=== PATIENT | female | born 1955 | race American Indian/Alaskan Native ===

== ENCOUNTER 2019-03-12 06:54 | Emergency (ER) | payer MEDICARE, OTHER ==
[2019-03-12 07:17] VITALS: BP 129/85
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
--- NOTE | 2019-03-12 09:40 | XRay Report ---
Left fingers, 3 views INDICATION: left middle finger pain. COMPARISON: None. IMPRESSION: No acute osseous or soft tissue abnormality. No significant DJD. Signer Name: Lawrence Mcnulty Jr, MD Signed: 03/12/2019 9:36 AM Workstation Name: [id number]
== END 2019-03-12 10:08 | disposition home or self-care (01) ==
LOC: ED 06:54
DX: S02.2XXA Fracture of nasal bones, initial encounter for closed fracture (principal); M79.645 Pain in left finger(s); I10 Essential (primary) hypertension; X58.XXXA Exposure to other specified factors, initial encounter; Y93.89 Activity, other specified; Y92.89 Other specified places as the place of occurrence of the external cause; Y99.8 Other external cause status
CPT/HCPCS: 70160

== ENCOUNTER 2019-04-08 09:45 | Observation (INO) | payer MEDICARE ==
[2019-04-08 10:22] LABS: Basophils # (Auto) 0.1 K/mm3 (0.0-0.1); Basophils % (Auto) 0.7 % (0.0-1.8); Eosinophils # (Auto) 0.2 K/mm3 (0.0-0.4); Eosinophils % (Auto) 2.8 % (0.0-4.3); Hematocrit 41.9 % (30.3-42.9); Hemoglobin 14.1 gm/dl (10.1-14.3); Lymphocytes # (Auto) 2.2 K/mm3 (1.2-5.4); Lymphocytes % (Auto) 28.6 % (13.4-35.0); Mean Corpuscular HGB Conc 34 % (30-34); Mean Corpuscular Volume 85 fl (79-97); Monocytes # (Auto) 0.5 K/mm3 (0.0-0.8); Monocytes % (Auto) 6.1 % (0.0-7.3); Platelet Count 278 K/mm3 (140-440); Red Blood Count 4.93 M/mm3 (3.65-5.03); Red Cell Distribution Width 14.6 % (13.2-15.2)
--- NOTE | 2019-04-08 10:30 | XRay Report ---
CHEST 1 VIEW 04/08/2019 10:10 AM INDICATION / CLINICAL INFORMATION: Chest Pain. COMPARISON: None available. FINDINGS: SUPPORT DEVICES: None. HEART / MEDIASTINUM: Heart is upper normal size for AP portable technique. LUNGS / PLEURA: No significant pulmonary or pleural abnormality. No pneumothorax. ADDITIONAL FINDINGS: No significant additional findings. IMPRESSION: 1. No acute findings. Signer Name: Jarad Rajan MD Signed: 04/08/2019 10:26 AM Workstation Name: [id number]
[2019-04-08 10:44] LABS: BUN/Creatinine Ratio 21; Blood Urea Nitrogen 17 mg/dL (7-17); Calcium 9.1 mg/dL (8.4-10.2); Hemolysis Index 1
[2019-04-08] MEDS: NITROGLYCERIN 0.4 MG TAB SUBL SL PRN ×2 (14:11→14:20)
[2019-04-08] MEDS ORDERED: LIDOCAINE VISCOUS 2% 15 ML ORAL LIQD ONE (14:30)
[2019-04-08] MEDS ORDERED: ALUM-MAG HYDROXIDE-SIMETHICONE 200-200-20MG/5ML ORAL LIQD 30 ML ONE (14:30)
[2019-04-08] MEDS ORDERED: LIDOCAINE VISCOUS 2% 15 ML ORAL LIQD PO ONE (14:33)
--- NOTE | 2019-04-08 14:33 | Emergency Department Report ---
ED General Adult HPI - General Chief complaint: Chest Pain Stated complaint: CHEST PAIN Time Seen by Provider: 04/08/19 09:58 Source: patient, EMS Mode of arrival: Stretcher Limitations: No Limitations - History of Present Illness Initial comments: The patient presents to the emergency department with a chief complaint of substernal chest pain without radiation. Patient describes the chest pain as pressure that is continuously applied to her chest. Patient states the pain started approximately 9 AM this morning and has been continuous. Patient en dorses increased stresses in her life but denies a history of diabetes or hyperlipidemia. She denies abdominal pain, headache, shortness of breath. -: Sudden Location: chest Severity scale (0 -10): 5 Quality: other (pressure) Consistency: constant Improves with: none Worsens with: none Associated Symptoms: denies other symptoms Treatments Prior to Arrival: none - Related Data Allergies Allergy/AdvReac Type Severity Reaction Status Date / Time No Known Allergies Allergy Verified 04/08/19 14:30 ED Review of Systems ROS: Stated complaint: CHEST PAIN Other details as noted in HPI Comment: All other systems reviewed and negative Constitutional: denies: chills, fever Eyes: denies: eye pain, eye discharge, vision change ENT: denies: ear pain, throat pain Respiratory: denies: cough, shortness of breath, wheezing Cardiovascular: denies: chest pain, palpitations Endocrine: no symptoms reported Gastrointestinal: denies: abdominal pain, nausea, diarrhea Genitourinary: denies: urgency, dysuria, discharge Musculoskeletal: denies: back pain, joint swelling, arthralgia Skin: denies: rash, lesions Neurological: denies: headache, weakness, paresthesias Psychiatric: denies: anxiety, depression Hematological/Lymphatic: denies: easy bleeding, easy bruising ED Past Medical Hx - Past Medical History Hx Hypertension: Yes 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 Absent: respiratory distress - Cardiovascular Cardiovascular Exam: Present: regular rate, normal rhythm. Absent: systolic murmur, diastolic murmur, rubs, gallop - GI/Abdominal GI/Abdominal exam: Present: soft, normal bowel sounds. Absent: distended, tenderness - Extremities Exam Extremities exam: Present: normal inspection - Back Exam Back exam: Present: normal inspection - Neurological Exam Neurological exam: Present: alert, oriented X3, CN II-XII intact. Absent: motor sensory deficit - Psychiatric Psychiatric exam: Present: normal affect, normal mood - Skin Skin exam: Present: warm, dry, intact, normal color. Absent: rash ED Course Vital Signs 04/08/19 04/08/19 04/08/19 09:58 11:01 11:17 Temperature 97.4 F L Pulse Rate 76 59 L Respiratory 19 18 11 L Rate Blood Pressure 130/60 132/69 O2 Sat by Pulse 99 100 98 Oximetry 04/08/19 04/08/19 04/08/19 11:30 12:01 12:30 Temperature Pulse Rate 60 56 L 57 L Respiratory 13 12 14 Rate Blood Pressure 132/69 144/77 124/76 O2 Sat by Pulse 99 97 98 Oximetry 04/08/19 04/08/19 04/08/19 13:00 13:31 14:00 Temperature Pulse Rate 55 L 63 56 L Respiratory 11 L 12 12 Rate Blood Pressure 129/78 140/80 128/68 O2 Sat by Pulse 99 99 99 Oximetry 04/08/19 04/08/19 04/08/19 14:11 14:15 14:20 Temperature Pulse Rate 56 L 81 81 Respiratory 16 Rate Blood Pressure 128/68 128/68 128/68 O2 Sat by Pulse 97 Oximetry ED Medical Decision Making - Lab Data Result diagrams: 04/08/19 10:14 04/08/19 10:14 - EKG Data -: EKG Interpreted by Me EKG shows normal: sinus rhythm Rate: normal - Radiology Data Radiology results: report reviewed - Medical Decision Making Patient had relief of CP with nitro Critical care attestation.: If time is entered above; I have spent that time in minutes in the direct care of this critically ill patient, excluding procedure time. ED Disposition Clinical Impression: Chest pain Disposition: OP ADMIT IP TO THIS HOSP Is pt being admited?: Yes Does the pt Need Aspirin: Yes Condition: Fair Instructions: Chest Pain (ED) Referrals: PRIMARY CARE,MD [Primary Care Provider] - 3-5 Days
[2019-04-08] MEDS ORDERED: ALUM-MAG HYDROXIDE-SIMETHICONE 200-200-20MG/5ML ORAL LIQD 30 ML PO ONE (14:35)
[2019-04-08] MEDS: ASPIRIN 81 MG TAB CHEW PO ONE ×2 (15:06→15:09)
[2019-04-08] MEDS ORDERED: ASPIRIN 325 MG TAB ONE (15:07)
--- NOTE | 2019-04-08 21:38 | History and Physical Report ---
History of Present Illness Date of examination: 04/08/19 Date of admission: 04/08/19 14:41 Chief complaint: Chest pain since AM History of present illness: 63 y/o patient presents to the emergency department with a chief complaint of substernal chest pain without radiation. Patient describes the chest pain as pressure that is continuously applied to her chest. Patient states the pain started approximately 9 AM this morning and has been continuous. Patient endo rses increased stresses in her life but denies a history of diabetes or hyperlipidemia. She denies abdominal pain, headache, shortness of breath.Pain is 5 on scale of 10.No palpitations or sob or diaphoresis. Past Medical History Hx Hypertension: Yes CVA: Yes (at age 23 no deficits) Surgical History Additional Surgical History: tubal ligation, foot repair Social History Smoking Status: Never Smoker Substance Use Type: Marijuana Blake N a complication Family History Htn Review of Systems ROS: Stated complaint: CHEST PAIN Other details as noted in HPI Comment: All other systems reviewed and negative Constitutional: denies: chills, fever Eyes: denies: eye pain, eye discharge, vision change ENT: denies: ear pain, throat pain Respiratory: denies: cough, shortness of breath, wheezing Cardiovascular: denies: chest pain, palpitations Endocrine: no symptoms reported Gastrointestinal: denies: abdominal pain, nausea, diarrhea Genitourinary: denies: urgency, dysuria, discharge Musculoskeletal: denies: back pain, joint swelling, arthralgia Skin: denies: rash, lesions Neurological: denies: headache, weakness, paresthesias Psychiatric: denies: anxiety, depression Hematological/Lymphatic: denies: easy bleeding, easy bruis Medications and Allergies Allergies Allergy/AdvReac Type Severity Reaction Status Date / Time No Known Allergies Allergy Verified 04/08/19 14:30 Home Medications Medication Instructions Recorded Confirmed Last Taken Type ARIPiprazole [Abilify TAB] 5 mg PO DAILY 04/08/19 04/08/19 11/11/18 History Aspirin [Aspirin BABY CHEW TAB] 81 mg PO QDAY 04/08/19 04/08/19 12/24/18 History Celecoxib [celeBREX] 200 mg PO QDAY 04/08/19 04/08/19 11/11/18 History Escitalopram Oxalate [Lexapro] 20 mg PO QHS 04/08/19 04/08/19 11/11/18 History amLODIPine [Norvasc] 5 mg PO DAILY 04/08/19 04/08/19 12/24/18 History Active Meds: Active Medications Nitroglycerin (Nitrostat) 0.4 mg SL .Q5MIN PRN PRN Reason: Chest Pain Last Admin: 04/08/19 14:20 Dose: 0.4 mg Documented by: Exam - Constitutional Vitals: Temp Pulse Resp BP Pulse Ox 98.4 F 61 16 127/74 98 04/08/19 16:22 04/08/19 16:22 04/08/19 16:22 04/08/19 16:22 04/08/19 16:22 General appearance: Present: no acute distress, well-nourished - EENT Eyes: Present: PERRL ENT: hearing intact, clear oral mucosa - Neck Neck: Present: supple, normal ROM - Respiratory Respiratory effort: normal Respiratory: bilateral: CTA - Cardiovascular Heart rate: 78 Rhythm: regular Heart Sounds: Present: S1 & S2. Absent: rub, click - Extremities Extremities: no ischemia, pulses intact, pulses symmetrical, No edema Peripheral Pulses: within normal limits - Abdominal General gastrointestinal: Present: soft, non-tender, non-distended, normal bowel sounds Female genitourinary: Present: normal - Rectal Rectal Exam: deferred - Integumentary Integumentary: Present: clear, warm, dry - Musculoskeletal Musculoskeletal: gait normal, strength equal bilaterally - Psychiatric Psychiatric: appropriate mood/affect, intact judgment & insight - Neurologic Neurologic: CNII-XII intact, moves all extremities - Allied Health Allied health notes reviewed: nursing, case management Results - Labs CBC & Chem 7: 04/08/19 10:14 04/08/19 10:14 Labs: Laboratory Last Values WBC 7.7 K/mm3 (4.5-11.0) 04/08/19 10:14 RBC 4.93 M/mm3 (3.65-5.03) 04/08/19 10:14 Hgb 14.1 gm/dl (10.1-14.3) 04/08/19 10:14 Hct 41.9 % (30.3-42.9) 04/08/19 10:14 MCV 85 fl (79-97) 04/08/19 10:14 MCH 29 pg (28-32) 04/08/19 10:14 MCHC 34 % (30-34) 04/08/19 10:14 RDW 14.6 % (13.2-15.2) 04/08/19 10:14 Plt Count 278 K/mm3 (140-440) 04/08/19 10:14 Lymph % (Auto) 28.6 % (13.4-35.0) 04/08/19 10:14 [place] % (Auto) 6.1 % (0.0-7.3) 04/08/19 10:14 Eos % (Auto) 2.8 % (0.0-4.3) 04/08/19 10:14 Baso % (Auto) 0.7 % (0.0-1.8) 04/08/19 10:14 Lymph # 2.2 K/mm3 (1.2-5.4) 04/08/19 10:14 [place] # 0.5 K/mm3 (0.0-0.8) 04/08/19 10:14 Eos # 0.2 K/mm3 (0.0-0.4) 04/08/19 10:14 Baso # 0.1 K/mm3 (0.0-0.1) 04/08/19 10:14 Seg Neutrophils % 61.8 % (40.0-70.0) 04/08/19 10:14 Seg Neutrophils # 4.7 K/mm3 (1.8-7.7) 04/08/19 10:14 Sodium 141 mmol/L (137-145) 04/08/19 10:14 Potassium 4.0 mmol/L (3.6-5.0) 04/08/19 10:14 Chloride 103.6 mmol/L (98-107) 04/08/19 10:14 Carbon Dioxide 24 mmol/L (22-30) 04/08/19 10:14 Anion Gap 17 mmol/L 04/08/19 10:14 BUN 17 mg/dL (7-17) 04/08/19 10:14 Creatinine 0.8 mg/dL (0.7-1.2) 04/08/19 10:14 Estimated GFR > 60 ml/min 04/08/19 10:14 BUN/Creatinine Ratio 21 % 04/08/19 10:14 Glucose 104 mg/dL (65-100) H 04/08/19 10:14 Calcium 9.1 mg/dL (8.4-10.2) 04/08/19 10:14 Troponin T < 0.010 ng/mL (0.00-0.029) 04/08/19 16:15 NT-Pro-B Natriuret Pep 8.68 pg/mL (0-900) 04/08/19 10:14 - Imaging and Cardiology EKG: report reviewed (NSR 63/min) Chest x-ray: report reviewed (NAF) Assessment and Plan Advance Directives: Yes (Full code) VTE prophylaxis?: Chemical - Patient Problems (1) Chest pain Current Visit: Yes Status: Acute Qualifiers: Chest pain type: unspecified Qualified Code(s): R07.9 - Chest pain, unspecified Plan to address problem: Chest pain r/o [place] protocol Serial Troponins Lexiscan in AM (2) HTN (hypertension) Current Visit: Yes Status: Chronic Qualifiers: Hypertension type: essential hypertension Qualified Code(s): I10 - Essential (primary) hypertension Plan to address problem: Cont antihypertensives (3) Depression Current Visit: Yes Status: Chronic Qualifiers: Depression Type: unspecified Qualified Code(s): F32.9 - Major depressive disorder, single episode, unspecified Plan to address problem: Cont Lexapro (4) Arthritis Current Visit: Yes Status: Chronic Plan to address problem: On Celebrex (5) DVT prophylaxis Current Visit: Yes Status: Acute Plan to address problem: On Lovenox and GI prophylaxis
[2019-04-08] MEDS ORDERED: ESCITALOPRAM 10 MG TAB PO SCH (22:00)
[2019-04-08] MEDS ORDERED: NON-FORMULARY EACH (Escitalopram Oxalate [Lexapro] 20 MG) PO SCH (22:00)
[2019-04-08] MEDS: amLODIPine 5 MG TAB PO SCH (22:18)
[2019-04-08] MEDS: CELECOXIB 200 MG CAP PO SCH (22:18)
[2019-04-08] MEDS: ARIPiprazole 5 MG TAB PO SCH (22:19)
[2019-04-09] MEDS ORDERED: HYDROmorphone 1 MG/1 ML INJ IV PRN (07:31)
[2019-04-09] MEDS ORDERED: oxyCODONE /ACETAMINOPHEN 5-325MG TAB PO PRN (07:31)
[2019-04-09] MEDS ORDERED: ACETAMINOPHEN 325 MG TAB PO PRN (07:31)
[2019-04-09] MEDS ORDERED: ONDANSETRON 4 MG/2 ML INJ IV PRN (07:31)
[2019-04-09] MEDS ORDERED: REGADENOSON 0.4 MG/5 ML INJ IV ONE (08:11)
[2019-04-09 09:25] LABS: BUN/Creatinine Ratio 20; Blood Urea Nitrogen 14 mg/dL (7-17); Calcium 9.1 mg/dL (8.4-10.2); Hemolysis Index 108
[2019-04-09] MEDS ORDERED: ASPIRIN 81 MG TAB CHEW PO SCH (10:00)
[2019-04-09 12:39] VITALS: BP 125/73
--- NOTE | 2019-04-09 13:19 | Discharge Summary ---
Providers - Providers Date of Admission: 04/08/19 14:41 Date of discharge: 04/09/19 Attending physician: SONAM JORDAN Primary care physician: [employer]PER Hospitalization Condition: Fair Pertinent studies: Stress test--negative Hospital course: 63 y/o patient presents to the emergency department with a chief complaint of substernal chest pain without radiation. Patient describes the chest pain as pressure that is continuously applied to her chest. Patient states the pain started approximately 9 AM this morning and has been continuous. Patient endorses increased stresses in her life but denies a history of diabetes or hyperlipidemia. She denies abdominal pain, headache, shortness of breath.Pain is 5 on scale of 10.No palpitations or sob or diaphoresis. (1) Chest pain Current Visit: Yes Status: Acute Qualifiers: Chest pain type: unspecified Qualified Code(s): R07.9 - Chest pain, unspecified Plan to address problem: Chest pain r/o [place] protocol Serial Troponins--normal Lexiscan--Normal (2) HTN (hypertension) Current Visit: Yes Status: Chronic Qualifiers: Hypertension type: essential hypertension Qualified Code(s): I10 - Essential (primary) hypertension Plan to address problem: Cont antihypertensives--BP controlled (3) Depression Current Visit: Yes Status: Chronic Qualifiers: Depression Type: unspecified Qualified Code(s): F32.9 - Major depressive disorder, single episode, unspecified Plan to address problem: Cont Lexapro (4) Arthritis Current Visit: Yes Status: Chronic Plan to address problem: On Celebrex Disposition: DC- TO HOME OR SELFCARE Core Measure Documentation - Palliative Care Palliative Care/ Comfort Measures: Not Applicable - Core Measures Any of the following diagnoses?: none Exam - Constitutional Vitals: Temp Pulse Resp BP Pulse Ox 98.4 F 64 16 125/73 97 04/09/19 12:38 04/09/19 12:38 04/09/19 12:38 04/09/19 12:38 04/09/19 12:38 General appearance: Present: no acute distress, well-nourished - EENT Eyes: Present: PERRL ENT: hearing intact, clear oral mucosa - Neck Neck: Present: supple, normal ROM - Respiratory Respiratory effort: normal Respiratory: bilateral: CTA - Cardiovascular Heart Sounds: Present: S1 & S2. Absent: rub, click - Extremities Extremities: pulses symmetrical, No edema Peripheral Pulses: within normal limits - Abdominal General gastrointestinal: Present: soft, non-tender, non-distended, normal bowel sounds Female genitourinary: Present: normal - Integumentary Integumentary: Present: clear, warm, dry - Musculoskeletal Musculoskeletal: gait normal, strength equal bilaterally - Psychiatric Psychiatric: appropriate mood/affect, intact judgment & insight - Neurologic Neurologic: CNII-XII intact, moves all extremities Plan Activity: no restrictions Diet: low salt, diabetic Follow up with: PRIMARY CARE, [Primary Care Provider] - 3-5 Days
[2019-04-09] MEDS: CELECOXIB 200 MG CAP PO SCH (13:27)
[2019-04-09] MEDS: ARIPiprazole 5 MG TAB PO SCH (13:27)
[2019-04-09] MEDS: amLODIPine 5 MG TAB PO SCH (13:28)
--- NOTE | 2019-04-10 02:57 | Treadmill Report ---
THALLIUM STRESS TEST LEFT VENTRICLE: Left ventricular chamber size is within normal spread. Perfusion study demonstrates homogeneous uptake of the tracer in all segments, no significant defects identified. Gated analysis demonstrates normal left ventricular systolic function, ejection fraction 66%. CONCLUSION: Normal myocardial perfusion study. JOB# [id number] CA/NTS
== END 2019-04-09 15:00 | disposition home or self-care (01) ==
LOC: ED 09:45 → 3A 14:41
PROVIDERS: ADMIT Internal Medicine; ATTEND Internal Medicine
DX: R07.89 Other chest pain (principal); I10 Essential (primary) hypertension; F32.9 Major depressive disorder, single episode, unspecified; M19.90 Unspecified osteoarthritis, unspecified site; Z86.73 Personal history of transient ischemic attack (TIA), and cerebral infarction without residual deficits; Z98.51 Tubal ligation status; Z79.82 Long term (current) use of aspirin
CPT/HCPCS: 36415; 71045; 78452; 80048; 83880; 84484; 85025; 93005; 93010; 93017; 99284; A9502; G0378; J2785